=== PATIENT | male | born 1980 | race Caucasian/White ===

== ENCOUNTER 2021-05-22 21:20 | Emergency (ER) | payer SELFPAY ==
[~2021-05-22] VITALS: Ht 182.9 cm; Wt 230.0 kg
[2021-05-22 21:30] VITALS: BP 148/68
[2021-05-22] MEDS ORDERED: VANCOMYCIN 2 GM in IV NORMAL SALINE 500ML BAG 500 ML IV ONE (22:00)
[2021-05-22] MEDS ORDERED: VANCOMYCIN 1GM IVPB FOR OMNI 250 ML IV ONE (22:00)
[2021-05-22] MEDS ORDERED: CEPHALEXIN 250 MG CAPSULE. PO STA (22:19)
[2021-05-22] MEDS ORDERED: SMZ/TMP 800/160MG TABLET. PO ONE (22:30)
[2021-05-22] MEDS ORDERED: SULF1TAB24 PO (22:43)
[2021-05-22] MEDS ORDERED: CEPH500T PO (22:43)
--- NOTE | 2021-05-22 22:43 | PHYS DOC ---
Past Medical History Past Medical History: Other Additional Past Medical Histor: LORI Past Surgical History: No Surgical History Smoking Status: Never Smoker Alcohol Use: None General Adult EDM: Chief Complaint: ABSCESS HPI: HPI: Patient is a 41-year-old male presents emergency department complaining of an a bscess to his right lower lateral abdomen that has been there for the past 3 days. Patient reports he has a history of abscesses, most often he can pop them and they resolve on their own however sometimes he needs antibiotics. Patient states he has not been admitted for abscesses in the past. Patient denies recent fever or chills. Denies nausea, vomiting, diarrhea. Denies other physical complaints or physical concerns. Patient denies cigarette smoking, denies alcohol use or illicit drug use. Patient denies a history of IV drug use. Review of Systems: Review of Systems: 14 body systems of review of systems have been reviewed. See HPI for pertinent positives and negative responses, otherwise all other systems are negative, nonpertinent or noncontributory. Constitutional: Negative except as outlined in HPI above. Skin: Negative except as outlined in HPI above. Eyes: Negative except as outlined in HPI above. HENT: Negative except as outlined in HPI above. Respiratory: Negative except as outlined in HPI above. Cardiovascular: Negative except as outlined in HPI above. GI: Negative except as outlined in HPI above. : Negative except as outlined in HPI above. Musculoskeletal: Negative except as outlined in HPI above. Integument: Negative except as outlined in HPI above. Neurologic: Negative except as outlined in HPI above. Endocrine: Negative except as outlined in HPI above. Lymphatic: Negative except as outlined in HPI above. Psychiatric: Negative except as outlined in HPI above. Heart Score: C/O Chest Pain: No Risk Factors: Risk Factors: DM, Current or recent (<one month) smoker, HTN, HLP, family history of CAD, obesity. Risk Scores: Score 0 - 3: 2.5% MACE over next 6 weeks - Discharge Home Score 4 - 6: 20.3% MACE over next 6 weeks - Admit for Clinical Observation Score 7 - 10: 72.7% MACE over next 6 weeks - Early Invasive Strategies Current Medications: Current Medications Medications (Trade) Dose Ordered Sig/Cira Start Time Stop Time Status Last Admin Dose Admin Vancomycin HCl 250 ml @ 250 mls/hr 1X ONCE 05/22/21 22:00 05/22/21 22:59 UNV Vancomycin HCl 2 gm/Sodium Chloride 500 ml @ 250 mls/hr 1X ONCE 05/22/21 22:00 05/22/21 23:59 Allergies: Allergies: Allergies Coded Allergies Type Severity Reaction Last Updated Verified No Known Drug Allergies 05/22/21 No Physical Exam: PE: Constitutional: Well developed, well nourished, no acute distress, non-toxic appearance. 41-year-old male in no apparent distress. HENT: Normocephalic, atraumatic. Eyes: Conjunctiva normal, no discharge. Neck: Normal range of motion, no stridor. Cardiovascular: No cyanosis appreciated, distal cap refill less than 2 seconds. Lungs & Thorax: Patient is in no respiratory distress, no audible adventitious lung sounds appreciated. Abdomen: Nontender, no abnormalities noted. Skin: Warm, dry, no erythema, no rash. Abscess to lower right anterior lateral abdomen skin surface with central punctum drainage of purulent whitish-srinivasan substance, induration with erythema with clearly demarcated borders measuring 20 cm x 7 cm. Drainage with palpation of indurated skin area. No lymphangitis appreciated. No other skin abscesses appreciated. Back: No tenderness, no deformities. Extremities: No tenderness, no cyanosis, no clubbing, ROM intact, no edema. Neurologic: Alert and oriented X 3, normal motor function, normal sensory function, no focal deficits noted. Psychologic: Affect normal, judgement normal, mood normal. Current Patient Data: Vital Signs: Vital Signs Date Time Temp Pulse Resp B/P (MAP) Pulse Ox O2 Delivery O2 Flow Rate FiO2 05/22/21 21:30 98.1 95 12 148/68 (94) 97 Room Air 98.1 EKG: EKG: [] Radiology/Procedures: Radiology/Procedures: [] Course & Med Decision Making: Course & Med Decision Making Pertinent Labs and Imaging studies reviewed. (See chart for details) 41-year-old male, vital signs reviewed, presents to the emergency department concerning abscess to abdomen. Physical examination concerning for subcutaneous abscess, patient has history of abscesses, discussed with patient will give IV vancomycin, discharged to home with prescription for Bactrim DS and Keflex, warm compresses over abscess, strict follow-up with primary care for wound evaluation in 3 days, return to ER precautions or concerns. Patient is amenable to ED planning. ED nurse reports patient is refusing IV vancomycin. Discussed with patient vancomycin refusal, patient reports he needs to get to work and cannot afford to lose his job, discussed with patient will start on Bactrim DS and Keflex antibiotic regimen, strict follow-up for wound evaluation in 3 days, discussed with patient discharge planning with outpatient antibiotic therapy, if fails please return to emergency department for reevaluation and consideration for IV antibiotic therapy and admission to hospital. Patient gave verbal understanding of and is amenable to ED discharge planning. Beti Disclaimer: Beti Disclaimer: This electronic medical record was generated, in whole or in part, using a voice recognition dictation system. Departure Departure Impression: Primary Impression: Abscess of skin of abdomen Disposition: HOME / SELF CARE / HOMELESS Condition: GOOD Referrals: NO PCP (PCP) [facility] Patient Instructions: Abscess Additional Instructions: You were seen today in the emergency department for an abscess to your abdomen. I had offered IV vancomycin for initial antibiotic therapy, you had refused related to the time involved in vancomycin administration, your abscess is draining, please continue to apply warm compresses to aid in the healing process, I have started you on Bactrim DS and Keflex in the emergency department today, I am sending a prescription to the pharmacy of your choice, please take as directed until completed. Please have this abscess reevaluated in 3 days, please return to the emergency department if not improving sooner. As we discussed if worsening and failing outpatient antibiotic therapy, IV antibiotics and inpatient management may be the next step in treatment of this abscess. Please follow-up with your primary care physician soon. Thank you for visiting our Emergency Department. It was a pleasure taking care of you today in the emergency department and we appreciate you trusting us with your care. If any additional problems come up don't hesitate to return to visit us. Please follow up with your primary care provider so they can plan additional care if needed and know about the problem that you had. If symptoms worsen come back to the Emergency Department. Any concerning symptoms that start such as chest pain, shortness of air, weakness or numbness on one side of the body, running high fevers or any other concerning symptoms return to the ER. EMERGENCY DEPARTMENT GENERAL DISCHARGE INSTRUCTIONS Thank you for coming to [facility] Emergency Department (ED) today and trusting us with you care. We trust that you had a positive experience in our Emergency Department. If you wish to speak to the department management, you may call the Director at [phone]. YOUR FOLLOW UP INSTRUCTIONS ARE FOLLOWS: 1. Do you have a private Doctor? If you do not have a private doctor, please ask for a resource list of physicians or clinics that may be able to assist you with follow up care. 2. The Emergency Physicain has interpreted your x-rays. The X-Ray specialist will also review them. If there is a change in the findings, you will be notified in 48 hours when at all possible. 3. A lab test or culture has been done, your results will be reviewed and you w ill be notified if you need a change in treatment. ADDITIONAL INSTRUCTIONS AND INFORMATION: 1. Your care today has been supervised by a physician who is specially trained in emergency care. Many problems require more than one evaluation for a complete diagnosis and treatment. We recommend that you schedule your follow up appointment as recommended to ensure complete treatment of you illness or injury. If you are unable to obtain follow up care and continue to have a problem, or if your condition worsens, we recommend that you return to the ED. 2. We are not able to safely determine your condition over the phone nor are we able to give sound medical advice over the phone. For these safety reasons, if you call for medical advice we will ask you to come to the ED for further evaluation. 3. If you have any questions regarding these discharge instructions please call the ED at [phone]. SAFETY INFORMATION: In the interest of safety, wellness, and injury prevention; we encourage you to wear your sealbelt, if you smoke; quite smoking, and we encourage family to use a protective helmet for bicycling and other sporting events that present an increased risk for head injury. IF YOUR SYMPTOMS WORSEN OR NEW SYMPTOMS DEVELOP, OR YOU HAVE CONCERNS ABOUT YOUR CONDITION; OR IF YOUR CONDITION WORSENS WHILE YOU ARE WAITING FOR YOUR FOLLOW UP APPOINTMENT; EITHER CONTACT YOUR PRIMARY CARE DOCTOR, THE PHYSICIAN WHOSE NAME AND NUMBER YOU WERE GIVEN, OR RETURN TO THE ED IMMEDIATELY. Scripts Cephalexin (CEPHALEXIN) 500 Mg Tablet 1 TAB PO QID for skin infection, #40 TAB 0 Refills Prov: CLAUDINE MCCABE APRN 05/22/21 Sulfamethoxazole/Trimethoprim (BACTRIM DS TABLET) 1 Each Tablet 1 TAB PO BID for skin infection for 10 Days, #20 TAB 0 Refills Prov: CLAUDINE MCCABE APRN 05/22/21 CLAUDINE MCCABE APRN May 22, 2021 22:43
== END 2021-05-22 22:53 | disposition home or self-care (01) ==
LOC: ER 21:20
DX: L02.11 Cutaneous abscess of neck (principal)
CPT/HCPCS: 99283